=== PATIENT | female | born 1985 ===

== ENCOUNTER → 2023-01-21 16:00 | Outpatient (CLI) | payer BC, SELFPAY ==
--- NOTE | ~2023-01-21 | MR_ITS ---
MRI of the right knee Clinical history: Pain Technique: Coronal proton density and proton density-weighted images, sagittal proton-density and T2 fat-sat images, and axial proton-density fat-saturated images were acquired. Findings: Anterior and posterior cruciate ligaments are intact. Medial collateral ligament and the la teral collateral complex are intact. Popliteus tendon is intact. Medial and lateral menisci are intact, without evidence of tear. There is mild chondromalacia patella. Bone marrow signals are essentially unremarkable. Extensor mechanism is intact. No significant joint effusion or Brothers's cyst. Impression: Mild chondromalacia patella. Reviewed, dictated and finalized at location M. TRUCKER Impression: Mild chondromalacia patella.
== END ==
PROVIDERS: PCP Internal Medicine
DX: M25.561 Pain in right knee (principal); G89.29 Other chronic pain
CPT/HCPCS: 73721